=== PATIENT | male | born 1970 | race Caucasian/White ===

== ENCOUNTER 2018-11-26 03:35 | Emergency (ER) | payer OTHER ==
[~2018-11-26] VITALS: Ht 195.6 cm; Wt 117.9 kg
[~2018-11-26 03:35] MED LIST: AUGMENTIN 875875 MG; CIPROFLOXACIN500 M1 PO; CLEOCIN HCL300 MG PO; IBUPROFEN 600600 M1 PO; IBUPROFEN 800800 M1; IBUPROFEN 800800 M1 PO; MULTI VITAMIN1 EACH PO; NAPROSYN500 MG PO; NOHOMEMEDICATIONS; NORCO 5-325 TA1 EACH PO; PERCOCET 5-3251 EACH PO; TYLENOL EXTRA500 MG PO; VALIUM2 MG PO
[2018-11-26] MEDS ORDERED: ULTRAM 50MG TAB50 MG PO (05:16)
[2018-11-26 05:25] VITALS: BP 160/107
== END 2018-11-26 06:15 | disposition home or self-care (01) ==
LOC: ER 03:35
DX: S02.5XXA Fracture of tooth (traumatic), initial encounter for closed fracture (principal); Z88.8 Allergy status to other drugs, medicaments and biological substances; W22.8XXA Striking against or struck by other objects, initial encounter; Y93.89 Activity, other specified; Y92.89 Other specified places as the place of occurrence of the external cause; Y99.8 Other external cause status

== ENCOUNTER 2019-11-24 00:33 | Emergency (ER) | payer OTHER ==
[~2019-11-24] VITALS: Ht 195.6 cm; Wt 124.7 kg
[~2019-11-24 00:33] MED LIST changes: +ULTRAM 50MG TAB50 MG PO
[2019-11-24] MEDS ORDERED: PROTONIX40 M1 PO (00:44)
[2019-11-24] MEDS ORDERED: CLONAZEPAM 0.50.5 M1 PO ×2 (00:45)
[2019-11-24] MEDS ORDERED: ADDERALL 30 MG30 MG PO (00:46)
[2019-11-24 01:51] LABS: ABSOLUTE NEUTROPHILS 3.2 thou/uL (1.4-8.2); BASOPHILS 0.7 % (0.0-2.0); EOSINOPHILS 1.2 % (0.0-3.0); HEMOGLOBIN 14.2 gm/dL (14.0-18.0); LYMPHOCYTES 14.6 % (24.0-44.0); MCH 33.6 pg (26.0-34.0); MCHC 34.6 g/dL (28.0-37.0); MCV 97.2 fL (80.0-100.0); MONOCYTES 9.4 % (1.0-8.0); PLATELET COUNT 163 thou/uL (150-400); POLYS 74.1 % (36.0-66.0); RBC 4.22 mil/uL (4.50-6.00); RDW 14.4 % (10.5-14.5); WBC 4.4 thou/uL (4.0-11.0)
[2019-11-24 02:02] LABS: ANION GAP 10 mmol/L (7-16); BUN 10 mg/dL (7-18); CHLORIDE 102 mmol/L (98-107); CO2 27 mmol/L (21-32); CREATININE 1.1 mg/dL (0.7-1.3); GLUCOSE 103 mg/dL (74-106); POTASSIUM 3.4 mmol/L (3.5-5.1); SODIUM 139 mmol/L (136-145)
[2019-11-24 02:13] LABS: LIPASE 243 U/L (73-393); SGOT 372 U/L (15-37); SGPT 148 U/L (30-65); TOTAL BILIRUBIN 1.7 mg/dL (0.2-1.0); TOTAL PROTEIN 7.6 g/dL (6.4-8.2); TROPONIN-I <0.06 ng/mL (<0.06)
[2019-11-24 03:05] VITALS: BP 155/111
--- NOTE | 2019-11-26 08:34 | EKG ---
[facility] [place] [address] ELECTROCARDIOGRAM REPORT Name: JACLYN RUSSELL Room #: DEP [facility]#: [id number] Admission: 11/24/19 Attend Phys: Discharge: 11/24/19 Date of : 70 Report #: [id number] THIS REPORT FOR: cc: FAM - No family physician/PCP FAM - No family physician/PCP Osmani Dill MD [facility] THIS REPORT FOR: //name// [facility] ED Test Date: 2019-11-24 Test Time: 00:59:12 Pat Name: JACLYN RUSSELL Department: Room: Gender: Peanut Salter: [place] [id number] : 1970 Requested By: Pratik Blanco Order Number: [id number] MD: Osmani Dill Measurements Intervals [place]ckenzie Rate: 119 P: 1 MD: 112 QRS: 24 QRSD: 93 T: 50 QT: 334 QTc: 470 Interpretive Statements Sinus tachycardia Atrial premature complex Baseline wander in lead(s) V3 Compared to ECG 01/06/1995 22:58:00 Atrial premature complex(es) now present Electronically Signed On 11-26-2019 8:32:37 CDT by Osmani Dill [email or web address] <ELECTRONICALLY SIGNED> By: Osmani Dill MD, FACC 11/26/19 0832 0059 0059 Osmani Dill MD, [facility] /EPI
== END 2019-11-24 03:10 | disposition home or self-care (01) ==
LOC: ER 00:33
PROVIDERS: Emergency Medicine
DX: K29.70 Gastritis, unspecified, without bleeding (principal); Z98.890 Other specified postprocedural states; Z87.442 Personal history of urinary calculi; Z79.899 Other long term (current) drug therapy; Z88.1 Allergy status to other antibiotic agents